=== PATIENT | female | born 2000 | race Hispanic/Latino ===

== ENCOUNTER 2024-01-26 22:06 | Emergency (ER) | payer MEDICAID, OTHER ==
[~2024-01-26] VITALS: Ht 162.6 cm; Wt 98.4 kg
[2024-01-26 23:01] LABS: BASOPHILS # (AUTO) 0.07 K/uL (0.00-0.20); BASOPHILS % (AUTO) 0.7 % (0.0-5.0); EOSINOPHILS # (AUTO) 0.16 K/uL (0.00-0.70); EOSINOPHILS % (AUTO) 1.6 % (0.0-8.0); HEMATOCRIT 37.1 % (36-48); IMMATURE GRANULOCYTE ABSOLUTE 0.02 K/uL (0-1); LYMPHOCYTES # (AUTO) 4.6 K/uL (1.0-4.8); LYMPHOCYTES % (AUTO) 46.5 % (21.0-51.0); MEAN CORPUSCULAR HEMOGLOBIN 29.2 pg (27.0-33.0); MEAN CORPUSCULAR HGB CONC 34.5 g/dL (32.0-36.0); MEAN CORPUSCULAR VOLUME 84.5 fL (79-99); MONOCYTES # (AUTO) 0.5 K/uL (0.1-1.0); MONOCYTES % (AUTO) 5.4 % (3.0-13.0); NEUTROPHILS # (AUTO) 4.5 K/uL (1.8-7.7); NEUTROPHILS % (AUTO) 45.6 % (40.0-77.0); PLATELET COUNT (AUTO) 258 K/uL (130-400); RED BLOOD CELL COUNT(AUTO) 4.39 MIL/uL (4.00-5.50); RED CELL DISTRIBUTION WIDTH 13.2 % (11.0-15.5)
[2024-01-26 23:13] LABS: CREATININE 0.7 mg/dL (0.5-1.0); POTASSIUM 3.6 mmol/L (3.5-5.1)
[2024-01-26 23:17] LABS: ALBUMIN 3.8 g/dL (3.5-5.0); BILIRUBIN,TOTAL 0.9 mg/dL (0.2-1.0); TOTAL PROTEIN, SERUM 7.4 g/dL (6.0-8.3)
[2024-01-27 00:09] LABS: APPEARANCE,URINE CLOUDY (CLEAR); BILIRUBIN,URINE NEGATIVE (NEGATIVE); COLOR,URINE YELLOW (YELLOW); GLUCOSE, URINE (UA) NEGATIVE (NEGATIVE); KETONES,URINE NEGATIVE (NEGATIVE); LEUKOCYTE ESTERASE ,URINE NEGATIVE Leu/uL (NEGATIVE); NITRATE,URINE NEGATIVE (NEGATIVE); OCCULT BLOOD,URINE LARGE (NEGATIVE); PROTEIN,URINE 100 mg/dL (NEGATIVE)
[2024-01-27 00:10] LABS: ADD UA MICROSCOPIC YES
[2024-01-27 00:12] LABS: BACTERIA,URINE FEW /HPF (None Seen); MUCUS,URINE FEW LPF (None Seen); RBC,URINE 26-50 /HPF (0-1); SQUAMOUS EPITHELIAL CELL,UR RARE /HPF (0-2)
[2024-01-27] MEDS ORDERED: IOHEXOL 350 MG/ML 100ML INFUS..BTL IV ONE (01:21)
[2024-01-27] MEDS ORDERED: IBUP-2077 PO (03:06)
[2024-01-27 03:16] VITALS: BP 128/83; PULSE 85; RESP 19; O2SAT 99
== END 2024-01-27 03:18 | disposition home or self-care (01) ==
LOC: EDH 22:06
DX: R10.31 Right lower quadrant pain (principal); Z98.890 Other specified postprocedural states
CPT/HCPCS: 99285; 80053; 84703; 83690; 85025; 86140; 81001; 36415; 74177; Q9967

== ENCOUNTER 2024-01-31 16:00 | Emergency (ER) | payer OTHER, MEDICAID ==
[~2024-01-31] VITALS: Ht 162.6 cm; Wt 98.4 kg
[~2024-01-31 16:00] MED LIST: IBUP-2077 PO
[2024-01-31] MEDS: ACETAMINOPHEN 325 MG TAB PO STA (17:56)
[2024-01-31] MEDS: CYCLOBENZAPRINE HCL 10 MG TABLET PO STA (17:56)
[2024-01-31 19:18] VITALS: BP 104/52; PULSE 74; RESP 20; O2SAT 97
== END 2024-01-31 19:25 | disposition home or self-care (01) ==
LOC: EDH 16:00
DX: S50.12XA Contusion of left forearm, initial encounter (principal); V89.2XXA Person injured in unspecified motor-vehicle accident, traffic, initial encounter; Y93.I9 Activity, other involving external motion; Y92.89 Other specified places as the place of occurrence of the external cause; Y99.8 Other external cause status
CPT/HCPCS: 73090; 73100

== ENCOUNTER 2025-07-31 00:05 | Emergency (ER) | payer MEDICAID, OTHER ==
[~2025-07-31] VITALS: Ht 162.6 cm; Wt 108.5 kg
[2025-07-31 00:07] VITALS: TEMP 98.7
[2025-07-31] MEDS: 0.9%NACL 1000ML 1,000 ML IV ONE (00:27)
[2025-07-31] MEDS: FAMOTIDINE 20MG VIAL IV ONE (00:28)
[2025-07-31 01:22] VITALS: BP 130/82; PULSE 74; RESP 18; O2SAT 100
--- NOTE | 2025-07-31 01:25 | ERN ---
ED Note History of Present Illness Stated Complaint: HIVES TO FACE, ONSET 5- 10 MIN [employer] IN ER Chief Complaint: Allergic Reaction Time Seen by MD: 00:07 Time Seen by Midlevel: 00:07 Dictation: The patient is a 25-year-old female with a history of D and C who presents to the emergency department with a rash to face and left lower leg onset prior to arrival. Patient reports she was eating seafood boil. Denies any allergies to seafood. Patient reports itchiness. Allergies: Coded Allergies: No Known Allergies (Unverified Allergy, Unknown, 01/26/24) Home Meds Active Scripts Ibuprofen (Ibuprofen 800 mg Tab) 800 Mg Tab, 800 MG PO Q6H PRN for PAIN, #30 TAB Prov:CHIKA RANGEL 01/27/24 Past Medical History Past Medical History: Other Additional Past Medical Hx: OVARIAN CYST RUPTURE, ECTOPIC , MISCARRIAGE Surgical History: None Surgical History Other: D & C RN Note Reviewed/Agreed w/PFSH: Yes Review of System Dictation Constitutional: Negative for fever,chills, and weight loss Eyes: Negative for injury, pain,redness, and discharge ENT: Negative for injury,pain or swelling Cardiovascular: Negative for chest pain, palpitations, and edema Respiratory: Negative for shortness of breath, cough, and wheezing, Abdomen/GI: Negative for abdominal pain, nausea, vomiting, diarrhea, and constipation Back: Negative for injury and pain : Negative for injury, bleeding and discharge MS/Extremity: Negative for injury and deformity Skin: Negative discoloration positive for rash Neuro: Negative for headache, weakness, numbness, tingling, and seizure Psych: Negative for suicide ideation, homicidal ideation, and hallucinations Initial Vital Sign VS Vital Signs Date Time Temp Pulse Resp B/P (MAP) Pulse Ox O2 Delivery O2 Flow Rate FiO2 07/31/25 00:07 98.8 86 18 170/90 98 Room Air 07/31/25 01:22 0 21 Physical Exam Dictation Vital Signs reviewed General Appearance: Alert, oriented x 3, no acute distress, well developed, nourished. Head and Face: non-traumatic. Eyes: PERRL, pink conjunctivas, eyelid no trauma, anterior chamber with arcus senilis. Ears: Pinnas intact and no signs of trauma or erythema ear canals clear and no discharge TM no erythema Nose: No discharge, no bleeding. Oropharynx: Mouth normal, tongue pink. Tongue normal in size pharynx clear,no erythema, tonsils no exudates, no abscesses noted, mucous membrane moist Neck: Supple, non-tender, no thyromegaly, no masses, no JVD, no bruits Breast:Deferred Chest:No tenderness, no crepitus, no paradoxical movement, no retractions Lungs:Clear, well-ventilated, symmetric, no rales, no wheezing, no rhonchi, no stridor, good breath sounds bilaterally Heart: Regular rate, regular rhythm, no murmur, no gallops Vascular: no peripheral edema, Abdomen: Soft, positive bowel sounds, nondistended, no guarding, nontender, no rebound, no masses no hepatomegaly, no splenomegaly, no Chicas's sign, no hernias. Rectal: Deferred Genital: Deferred Neurological: Normal speech, motor function intact, sensory function intact Musculoskeletal: Neck nontender, full range of motion, back nontender, full range of motion, Extremities: nontender, full range of motion Skin: Color pink, dry, no turgor, no lacerations, no abrasions, no contusions. Hives noted to face, left lower extremity, abdomen Lymphatic: Deferred Results (Laboratory/Radiology) Laboratory/Radiology Laboratory Tests Test 07/31/25 01:29 Urine HCG, Qualitative NEGATIVE (NEGATIVE) Labs Reviewed?: Yes ED Course ED Course Orders Procedure Category Date Status Time ,Urine Test LAB 07/31/25 Complete 00:14 Diphenhydramine Hcl PHA 07/31/25 Complete (Benadryl Inj) 00:30 Methylprednisolone PHA 07/31/25 Complete Succ 125mg (Solu-Medr 00:30 Famotidine 20mg Vial PHA 07/31/25 Complete (Pepcid 20mg Vial) 00:30 0.9%Nacl 1000ml (Ns PHA 07/31/25 Complete 1000ml) 00:30 Current Medications Medications (Trade) Dose Ordered Sig/Ana Cristina Route PRN Reason Start Time Stop Time Status Last Admin Dose Admin Diphenhydramine HCl (BENAdryl INJ) 50 mg ONCE ONCE IV 07/31/25 00:30 07/31/25 00:31 DC 07/31/25 00:28 Famotidine (Pepcid 20mg Vial) 20 mg ONCE ONCE IV 07/31/25 00:30 07/31/25 00:31 DC 07/31/25 00:28 Methylprednisolone Sodium Succinate (Solu-medROL 125MG) 125 mg ONCE ONCE IVP 07/31/25 00:30 07/31/25 00:31 DC 07/31/25 00:28 Sodium Chloride 1,000 ml @ 0 mls/hr ONCE ONCE IV 07/31/25 00:30 11 00:31 DC 07/31/25 00:27 Vital Signs Date Time Temp Pulse Resp B/P (MAP) Pulse Ox O2 Delivery O2 Flow Rate FiO2 07/31/25 01:22 74 18 130/82 100 Room Air* 0 21 07/31/25 00:07 98.8 86 18 170/90 98 Room Air Medical Decision Making MDM The patient is a 25-year-old female with a history of D and C who presents to the emergency department with a rash to face and left lower leg onset prior to arrival. Patient reports she was eating seafood boil. Denies any allergies to seafood. Patient reports itchiness. Patient was reassessed after medication. Patient no longer having any hives to face. Patient continues in no acute distress, nontoxic appearance. Patient will be discharged to follow up with PCP. Differential diagnosis: urticaria, allergic reaction, anaphylactic reaction Need for hospitalization: Patient does not meet criteria for hospitalization. There are no social concerns with this patient. DX & DISP Disposition: Discharge Departure Impression: Primary Impression: Allergic reaction Additional Impression: Acute urticaria Condition: Stable Scripts Diphenhydramine HCl (Benadryl) 50 Mg Cap 50 MG PO Q6H for itching/rash, #20 CAP 0 Refills Prov: TYLER VALENZUELA [employer]BY [employer]ER 07/31/25 Famotidine (Pepcid) 20 Mg Tablet 1 TAB PO BID for 10 Days, #30 TAB 0 Refills Prov: TYLER VALENZUELA [employer]BY [employer]KER 07/31/25 Additional Instructions: Please avoid any seafood or known allergens. Take your medications as prescribed. If you develop severe swelling to your face or tongue or symptoms worsen please return to ER. FOLLOW-UP WITH PRIMARY CARE PROVIDER IN 1 TO 2 DAYS. TAKE MEDICATIONS DIRECTED HERE IN THE EMERGENCY ROOM. OKAY TO CONTINUE HOME MEDICATIONS UNLESS OTHERWISE DISCUSSED DURING YOUR VISIT IN THE EMERGENCY ROOM TODAY. RETURN TO YOUR NEAREST EMERGENCY ROOM IF SYMPTOMS WORSEN OR IF THERE IS NO IMPROVEMENT. CALL 911 IF YOU NEED IMMEDIATE ASSISTANCE. TAKE TYLENOL [id number] NEEDED AND IF NO CONTRAINDICATIONS ARE PRESENT. INCREASE ORAL HYDRATION. A WOUND CULTURE OR URINE CULTURE WAS ORDERED HERE IN THE EMERGENCY ROOM DEPARTMENT PLEASE FOLLOW-UP WITH PRIMARY CARE PROVIDER AND ADVISE THEM TO GET REPEAT PORTS FROM OUR FACILITY. IF YOU HAD ANY ANASTASIA WRAP/SPLINTS THAT WERE APPLIED HERE, PLEASE DO NOT REMOVE THEM UNTIL YOU SEE YOUR PRIMARY CARE OR SPECIALTY. Referrals: SELF,REFERRAL (PCP) Time of Disposition: 01:57 I have reviewed the case, and I agree with, Diagnosis and Plan TYLER VALENZUELA [facility] Jul 31, 2025 01:25
[2025-07-31] MEDS ORDERED: FAMO-136 PO (01:58)
[2025-07-31] MEDS ORDERED: DIPH50CA38 PO (01:58)
== END 2025-07-31 02:16 | disposition home or self-care (01) ==
LOC: EDH 00:05
DX: T78.19XA Other adverse food reactions, not elsewhere classified, initial encounter (principal); L50.0 Allergic urticaria; X58.XXXA Exposure to other specified factors, initial encounter
CPT/HCPCS: 99284; 96374; 96375; 81025; J2919; J1200; J1308; J7030